=== PATIENT | male | born 1945 | race Caucasian/White ===

== ENCOUNTER 2018-09-09 10:35 | Inpatient (IN) | payer MEDICARE ==
--- NOTE | 2018-09-09 13:22 | CT ---
Head wo Cont CLINICAL HISTORY: Left arm weakness and numbness COMPARISON: None TECHNIQUE: Transverse scans were obtained from the base of the skull through the vertex without IV contrast on a multislice, multidetector CT scanner. Auto dosage reduction and iterative reconstruction techniques employed. FINDINGS: No focal abnormal parenchymal densities are identified. The ayala-white matter junctions are fairly well defined throughout.. There is no mass effect, hemorrhage, or extraaxial collection. The basal cisterns and sulci over the convexities are normal. The ventricles are normal for age. There is some increased density along the track of the right middle cerebral artery. This is of questionable significance but thrombus in the artery cannot be absolutely excluded. IMPRESSION: No parenchymal abnormalities are identified Increased density suggested in the right middle cerebral artery which can be seen with thrombosis. Noncontrast MR brain recommended. If there are are right the middle cerebral artery distribution parenchymal changes within the MRA or CTA is recommended
--- NOTE | 2018-09-09 14:48 | EDM.PDOC ---
ED HPI GENERAL MEDICAL PROBLEM - General Chief Complaint: Neuro Symptoms/Deficits Stated Complaint: LEFT SIDE NUMBNESS Time Seen by Provider: 09/09/18 10:50 Source of Information: Reports: Patient History Limitations: Reports: No Limitations - History of Present Illness INITIAL COMMENTS - FREE TEXT/NARRATIVE: pt arrived with numbness in the left arm. This has claribel persistent. He feels like it is slightly weaker. He feels like it is just a little difficult to coodinate. He does have slight numbness in the left leg. He does not have a headache. Onset: Today, Other ( started at around 10 am. ) Duration: Hour(s): Location: Reports: Upper Extremity, Left, Lower Extremity, Left Severity: Severe Associated Symptoms: Reports: Weakness, Other (pt has numbness in the left arm. ) - Related Data Allergies Allergy/AdvReac Type Severity Reaction Status Date / Time No Known Allergies Allergy Verified 09/09/18 10:52 Home Meds: Home Meds Albuterol Sulfate [Proair Hfa] 8.5 gm IH ASDIRECTED 08/23/15 [History] Doxazosin Mesylate 2 mg PO DAILY 08/23/15 [History] Lisinopril 1 tab PO DAILY 08/23/15 [History] Simvastatin [Zocor] 40 mg PO BEDTIME 08/23/15 [History] Aspirin [Adult Low Dose Aspirin EC] 81 mg PO DAILY 09/09/18 [History] Clopidogrel [Plavix] 75 mg PO DAILY tablet 09/10/18 [Rx] Past Medical History HEENT History: Reports: Cataract, Impaired Vision Cardiovascular History: Reports: High Cholesterol, Hypertension Respiratory History: Reports: Asthma Musculoskeletal History: Reports: Fracture Other Musculoskeletal History: finger Oncologic (Cancer) History: Reports: Squamous Cell Carcinoma - Infectious Disease History Infectious Disease History: Reports: Chicken Pox, Measles, Mumps - Past Surgical History Cardiovascular Surgical History: Reports: Coronary Artery Stent Dermatological Surgical History: Reports: Skin Biopsy Social & Family History - Tobacco Use Smoking Status *Q: Never Smoker - Caffeine Use Caffeine Use: Reports: None - Recreational Drug Use Recreational Drug Use: No ED ROS GENERAL - Review of Systems Review Of Systems: See Below Constitutional: Reports: No Symptoms HEENT: Reports: No Symptoms Respiratory: Reports: No Symptoms Cardiovascular: Reports: No Symptoms Endocrine: Reports: No Symptoms GI/Abdominal: Reports: No Symptoms : Reports: No Symptoms Musculoskeletal: Reports: Other (numbness in the left arm. ) Skin: Reports: No Symptoms ED EXAM, NEURO - Physical Exam Exam: See Below Text/Narrative:: pt arrived with numbness in the left arm. He felt like the whole arm was numb. he was able to grasp well but there might be slight weakness. he had the symptoms for 4-5 hours. Exam Limited By: No Limitations General Appearance: Alert, No Apparent Distress, Other (pupils are equal and reactive. ) Ears: Normal TMs Nose: Normal Inspection Throat/Mouth: Normal Inspection Head Exam: Atraumatic Neck: Normal Inspection Respiratory/Chest: No Respiratory Distress Cardiovascular: Other (pt is having frquent ventricular ectopics, ) GI/Abdominal: Soft, Non-Tender Rectal (Males) Exam: Deferred Neurological: Alert, Oriented x 3 Back Exam: Normal Inspection Extremities: Other (pt is having numbness in the left arm and slight weakness. ) Psychiatric: Normal Affect Course - Vital Signs Last Recorded V/S: Last Vital Signs Temp 36.9 C 09/10/18 16:15 Pulse 84 09/10/18 16:15 Resp 16 09/10/18 16:15 BP 112/64 09/10/18 16:15 Pulse Ox 97 09/10/18 16:15 - Orders/Labs/Meds Labs: Laboratory Tests 09/09/18 09/09/18 09/09/18 Range/Units 11:02 11:02 11:24 WBC 8.0 (4.5-11.0) K/uL RBC 5.35 (4.30-5.90) M/uL Hgb 15.6 H (12.0-15.0) g/dL Hct 48.1 (40.0-54.0) % MCV 90 (80-98) fL MCH 29 (27-31) pg MCHC 32 (32-36) % Plt Count 205 (150-400) K/uL Neut % (Auto) 71 H (36-66) % Lymph % (Auto) 16 L (24-44) % [place] % (Auto) 10 H (2-6) % Eos % (Auto) 2 (2-4) % Baso % (Auto) 0 (0-1) % Sodium 141 (140-148) mmol/L Potassium 4.2 (3.6-5.2) mmol/L Chloride 107 (100-108) mmol/L Carbon Dioxide 26 (21-32) mmol/L Anion Gap 8.1 (5.0-14.0) mmol/L BUN 27 H (7-18) mg/dL Creatinine 1.7 H (0.8-1.3) mg/dL Est Cr Clr Drug Dosing 49.28 mL/min Estimated GFR (MDRD) 40 L (>60) Glucose 112 H (74-106) mg/dL Calcium 8.7 (8.5-10.1) mg/dL Total Bilirubin 0.8 D (0.2-1.0) mg/dL AST 16 (15-37) U/L ALT 19 (12-78) U/L Alkaline Phosphatase 79 (46-116) U/L Total Protein 6.4 (6.4-8.2) g/dL Albumin 3.3 L (3.4-5.0) g/dL Globulin 3.1 (2.3-3.5) g/dL Albumin/Globulin Ratio 1.1 L (1.2-2.2) Urine Color Yellow Urine Appearance Clear Urine pH 6.0 (4.5-8.0) Ur Specific [place] 1.020 (1.008-1.030) Urine Protein Negative (NEGATIVE) mg/dL Urine Glucose (UA) Normal (NEGATIVE) mg/dL Urine Ketones Negative (NEGATIVE) mg/dL Urine Occult Blood Negative (NEGATIVE) Urine Nitrite Negative (NEGAITVE) Urine Bilirubin Negative (NEGATIVE) Urine Urobilinogen Normal (NORMAL) mg/dL Ur Leukocyte Esterase Negative (NEGATIVE) Urine RBC 0-5 (0-5) Urine WBC Not seen (0-5) Ur Epithelial Cells Not seen Amorphous Sediment Few Urine Bacteria Not seen Urine Mucus Not seen Meds: Medications Discontinued Medications Generic Name Dose Route Start Last Admin Trade Name Freq PRN Reason Stop Dose Admin Albuterol 0 gm 09/09/18 18:00 Ventolin Hfa INH Q4H PRN Shortness of Breath Aspirin 81 mg 09/10/18 09:00 09/10/18 09:17 Halfprin PO 81 mg DAILY MARKEL Administration Clopidogrel Bisulfate 75 mg 09/09/18 18:30 09/10/18 09:16 Plavix PO 75 mg DAILY MARKEL Administration Clopidogrel Bisulfate Confirm 09/09/18 20:57 09/09/18 21:27 Plavix Administered 09/09/18 20:58 Not Given Dose 75 mg .ROUTE .STK-MED ONE Doxazosin Mesylate 2 mg 09/10/18 09:00 09/10/18 09:20 Cardura PO 2 mg DAILY MARKEL Administration Sodium Chloride 100 mls @ 3 mls/sec 09/09/18 15:00 09/09/18 15:08 Normal Saline IV 3 mls/sec ASDIRECTED MARKEL Administration Sodium Chloride 1,000 mls @ 75 mls/hr 09/09/18 15:15 09/10/18 09:15 Normal Saline IV 75 mls/hr ASDIRECTED AMRKEL Administration Iopamidol 100 ml 09/09/18 15:00 09/09/18 15:15 Isovue-370 (76%) IV 100 ml . DIRECTED MARKEL Administration Lisinopril 40 mg 09/10/18 09:00 09/10/18 09:16 Prinivil PO 40 mg DAILY MARKEL Administration Simvastatin 40 mg 09/09/18 21:00 09/09/18 20:59 Zocor PO 40 mg BEDTIME MARKEL Administration Simvastatin Confirm 09/09/18 20:57 09/09/18 21:27 Zocor Administered 09/09/18 20:58 Not Given Dose 20 mg .ROUTE .STK-MED ONE Sodium Chloride 10 ml 09/09/18 14:58 09/09/18 15:08 Saline Flush FLUSH 10 ml ASDIRECTED PRN Administration Keep Vein Open - Re-Assessments/Exams Free Text/Narrative Re-Assessment/Exam: 09/09/18 16:37 pt had a cat scan of the head which showed some fullness in the middle cerebral artery-rt, A Mri of the head was done which looked the same with a possible very small rt luncar infarct, A CTA was done which shows good looking vessels. All of the images were sent to Dr Iglesias who felt he had a small lacunar infarct , cont asa and statin and obtain a echo and holter mopnitor on the pt. He felt a over nite observation would be good. 09/12/18 07:13 Departure - Departure Time of Disposition: 16:31 Disposition: Admitted As Inpatient 64 Condition: Fair Clinical Impression: Lacunar infarct, acute, Ventricular ectopic beats - Discharge Information
[2018-09-09] MEDS ORDERED: Sodium Chloride 0.9% 10 ML Syringe FLUSH PRN (14:58)
[2018-09-09] MEDS ORDERED: Sodium Chloride 0.9% 100 ML IV SCH (15:00)
[2018-09-09] MEDS ORDERED: Iopamidol 755 Mg/ML 100 ML Bottle IV SCH (15:00)
--- NOTE | 2018-09-09 15:38 | MR ---
Brain wo Cont CLINICAL HISTORY: Right upper extremity numbness COMPARISON: Noncontrast CT brain, current TECHNIQUE: Multiple axial, sagittal, and coronal images were obtained on a 1.5 T magnet with multiweighted sequences, FLAIR, and diffusion imaging without contrast. FINDINGS: There is no focal mass lesion. There is no hemmorhage or extraaxial collection. No restricted diffusion is identified.. There are scattered T2 hyperintensities in the subcortical and periventricular white matter bilaterally. The basal cisterns and sulci over the convexities are normal. The ventricles are normal for age. On the T1 image series there is a linear hyperintense focus in the region of the junction of the ICA right A1 segment and right M1 segment. This correlates to the area of increased linear density on the CT scan. IMPRESSION: Mild age-related atrophy. Scattered chronic ischemic microvascular changes Curvilinear focus of the increased T1 signal in the right suprasellar cistern near the junction of the right ICA, right A1 segment and M1 segment.. This correlates to some increased density on the current CT scan. Though unlikely, this could represent nonobstructing intraluminal thrombus. CTA recommended
--- NOTE | 2018-09-09 15:48 | CT ---
Ang Head CLINICAL HISTORY: Recent onset Left arm numbness. COMPARISON: Current MR and noncontrast CT TECHNIQUE: Multiple volume rendered and MIP 3D reconstructions were generated from source images obtained on a spiral scanner before and after intravenous iodinated contrast enhancement Auto dosage reduction and iterative reconstruction techniques employed. FINDINGS: Internal carotid arteries: Show some minimal atheromatous plaque without significant stenosis. The left ICA Smaller than the right. Anterior cerebral arteries: The left A1 segment is atretic. There is a prominent right the A2 segment which divides to feed both the frontal lobes. Middle cerebral arteries: Both middle cerebral arteries have a normal course and caliber. No filling defect is identified in the right the middle cerebral artery. Communicating arteries are patent the Posterior cerebral arteries: Have a normal course and caliber. Both posterior tibial Vertebral/basilar arteries: Normal course and caliber. The right the superior cerebellar artery is atretic or absent. IMPRESSION: There is no intraluminal filling defect in the right the internal carotid middle cerebral or anterior cerebral artery. There is some ICA plaque on the right. Atretic left A1 segment as anatomic variant Atretic or absent right superior cerebral artery
[2018-09-09] MEDS: Sodium Chloride 0.9% 1,000 ML IV SCH ×2 (15:55→21:57)
--- NOTE | 2018-09-09 17:56 | PCM.HP ---
H&P History of Present Illness - General Date of Service: 09/09/18 Admit Problem/Dx: Admission Diagnosis/Problem Admission Diagnosis/Problem CVA, Cerebrovascular accident Source of Information: Patient, EMS History Limitations: Reports: No Limitations - History of Present Illness Initial Comments - Free Text/Narative: Started having numbness in the left arm at 10 AM and a lesser degree the left leg. No speech problem. No vision change and drove to the ER without difficulty. He has never had a problem before. Is better now then this morning. Onset of Symptoms: Reports: Today, Sudden Duration of Symptoms: Reports: Hour(s): Location: Reports: Upper Extremity, Left, Lower Extremity, Left - Related Data Allergies/Adverse Reactions: Allergies Allergy/AdvReac Type Severity Reaction Status Date / Time No Known Allergies Allergy Verified 09/09/18 10:52 Home Medications: Home Meds Albuterol Sulfate [Proair Hfa] 8.5 gm IH ASDIRECTED 08/23/15 [History] Doxazosin Mesylate 2 mg PO DAILY 08/23/15 [History] Lisinopril 1 tab PO DAILY 08/23/15 [History] Simvastatin [Zocor] 40 mg PO BEDTIME 08/23/15 [History] Aspirin [Adult Low Dose Aspirin EC] 81 mg PO DAILY 09/09/18 [History] Past Medical History HEENT History: Reports: Cataract, Impaired Vision Cardiovascular History: Reports: High Cholesterol, Hypertension Respiratory History: Reports: Asthma Musculoskeletal History: Reports: Fracture Other Musculoskeletal History: finger Oncologic (Cancer) History: Reports: Squamous Cell Carcinoma - Infectious Disease History Infectious Disease History: Reports: Chicken Pox, Measles, Mumps - Past Surgical History Cardiovascular Surgical History: Reports: Coronary Artery Stent Dermatological Surgical History: Reports: Skin Biopsy Social & Family History - Tobacco Use Smoking Status *Q: Never Smoker - Caffeine Use Caffeine Use: Reports: None - Recreational Drug Use Recreational Drug Use: No H&P Review of Systems - Review of Systems: Review Of Systems: See Below General: Reports: No Symptoms HEENT: Reports: No Symptoms Pulmonary: Reports: No Symptoms Cardiovascular: Reports: No Symptoms Gastrointestinal: Reports: No Symptoms Genitourinary: Reports: No Symptoms Musculoskeletal: Reports: Other (left extrem. weakness) Skin: Reports: No Symptoms Psychiatric: Reports: No Symptoms Neurological: Reports: Numbness Exam - Exam Exam: See Below - Vital Signs Vital Signs: Last Vital Signs Temp 97.3 F 09/09/18 10:47 Pulse 93 09/09/18 17:30 Resp 18 09/09/18 17:30 BP 145/74 H 09/09/18 17:30 Pulse Ox 96 09/09/18 17:30 Weight: 277 lb 1.937 oz - Exam General: Alert, Oriented, 4 HEENT: PERRLA, Hearing Intact, Mucosa Moist & [place], Nares Patent, Normal Nasal Septum, Posterior Pharynx Clear, Conjunctiva Clear, EOMI, EACs Clear, TMs Clear Neck: Supple, Trachea Midline, 2 Lungs: Clear to Auscultation, Normal Respiratory Effort Cardiovascular: Regular Rate GI/Abdominal Exam: Normal Bowel Sounds, Soft, Non-Tender, No Organomegaly, No Distention, No Abnormal Bruit, No Mass, Pelvis Stable Peripheral Pulses: 1+: Carotid (L), Carotid (R), Radial (L), Radial (R) Skin: Warm, Dry, Intact Neurological: Cranial Nerves Intact, Reflexes Equal Bilateral Neuro Extensive - Mental Status: Alert, Oriented x3, Normal Mood/Affect, Normal Cognition Neuro Extensive - Motor, Sensory, Reflexes: CN II-XII Intact, Normal Gait, Normal Reflexes DTR: 1+: Bicep (L), 2+: Bicep (R), Patella (L), Patella (R), Achilles (L), Achilles (R) Psychiatric: Alert, Normal Affect, Normal Mood - Patient Data Lab Results Last 24 hrs: Laboratory Results - last 24 hr 09/09/18 09/09/18 09/09/18 Range/Units 11:02 11:02 11:24 WBC 8.0 (4.5-11.0) K/uL RBC 5.35 (4.30-5.90) M/uL Hgb 15.6 H (12.0-15.0) g/dL Hct 48.1 (40.0-54.0) % MCV 90 (80-98) fL MCH 29 (27-31) pg MCHC 32 (32-36) % Plt Count 205 (150-400) K/uL Neut % (Auto) 71 H (36-66) % Lymph % (Auto) 16 L (24-44) % [place] % (Auto) 10 H (2-6) % Eos % (Auto) 2 (2-4) % Baso % (Auto) 0 (0-1) % Sodium 141 (140-148) mmol/L Potassium 4.2 (3.6-5.2) mmol/L Chloride 107 (100-108) mmol/L Carbon Dioxide 26 (21-32) mmol/L Anion Gap 8.1 (5.0-14.0) mmol/L BUN 27 H (7-18) mg/dL Creatinine 1.7 H (0.8-1.3) mg/dL Est Cr Clr Drug Dosing 49.28 mL/min Estimated GFR (MDRD) 40 L (>60) Glucose 112 H (74-106) mg/dL Calcium 8.7 (8.5-10.1) mg/dL Total Bilirubin 0.8 D (0.2-1.0) mg/dL AST 16 (15-37) U/L ALT 19 (12-78) U/L Alkaline Phosphatase 79 (46-116) U/L Total Protein 6.4 (6.4-8.2) g/dL Albumin 3.3 L (3.4-5.0) g/dL Globulin 3.1 (2.3-3.5) g/dL Albumin/Globulin Ratio 1.1 L (1.2-2.2) Urine Color Yellow Urine Appearance Clear Urine pH 6.0 (4.5-8.0) Ur Specific [place] 1.020 (1.008-1.030) Urine Protein Negative (NEGATIVE) mg/dL Urine Glucose (UA) Normal (NEGATIVE) mg/dL Urine Ketones Negative (NEGATIVE) mg/dL Urine Occult Blood Negative (NEGATIVE) Urine Nitrite Negative (NEGAITVE) Urine Bilirubin Negative (NEGATIVE) Urine Urobilinogen Normal (NORMAL) mg/dL Ur Leukocyte Esterase Negative (NEGATIVE) Urine RBC 0-5 (0-5) Urine WBC Not seen (0-5) Ur Epithelial Cells Not seen Amorphous Sediment Few Urine Bacteria Not seen Urine Mucus Not seen Result Diagrams: 09/09/18 11:02 09/09/18 11:02 Problem List Initiated/Reviewed/Updated: Yes Orders Last 24hrs: Active Orders 24 hr Category Date Time Status Patient Status [ADT] Routine ADT 09/09/18 17:39 Ordered Ambulate [RC] QID Care 09/09/18 17:39 Ordered EKG Documentation Completion [RC] ASDIRECTED Care 09/09/18 10:59 Active Height and Weight [RC] UPON Care 09/09/18 17:39 Ordered Intake and Output [RC] QSHIFT Care 09/09/18 17:41 Ordered Oxygen Therapy [RC] PRN Care 09/09/18 17:39 Ordered Up ad Nini [RC] ASDIRECTED Care 09/09/18 17:39 Ordered Up to Chair [RC] QID Care 09/09/18 17:39 Ordered VTE/DVT Education [RC] Per Unit Routine Care 09/09/18 17:39 Ordered Vital Signs [RC] Q4H Care 09/09/18 17:39 Ordered Regular Diet [DIET] Diet 09/10/18 Breakfast Ordered Albuterol [Ventolin HFA] Med 09/09/18 18:00 Ordered 8.5 gm INH ASDIRECTED Aspirin [Halfprin] Med 09/10/18 09:00 Ordered 81 mg PO DAILY Doxazosin Mesylate [Doxazosin Mesylate] Med 09/10/18 09:00 Ordered 2 mg PO DAILY Iopamidol [Isovue-370 (76%)] Med 09/09/18 15:00 Active 100 ml IV . DIRECTED Lisinopril [Lisinopril] Med 09/10/18 09:00 Ordered 1 tab PO DAILY Simvastatin [Zocor] Med 09/09/18 21:00 Ordered 40 mg PO BEDTIME Sodium Chloride 0.9% [Normal Saline] 1,000 ml Med 09/09/18 15:15 Active IV ASDIRECTED Sodium Chloride 0.9% [Normal Saline] 100 ml Med 09/09/18 15:00 Active IV ASDIRECTED Sodium Chloride 0.9% [Saline Flush] Med 09/09/18 14:58 Active 10 ml FLUSH ASDIRECTED PRN Resuscitation Status Routine Resus Stat 09/09/18 17:39 Ordered EKG 12 Lead [EK] Routine Ther 09/09/18 10:59 Ordered Medication Orders Sodium Chloride (Normal Saline) 100 mls @ 3 mls/sec IV ASDIRECTED MARKEL Last Admin: 09/09/18 15:08 Dose: 3 mls/sec Sodium Chloride (Normal Saline) 1,000 mls @ 75 mls/hr IV ASDIRECTED MARKEL Last Admin: 09/09/18 15:55 Dose: 500 mls/hr Iopamidol (Isovue-370 (76%)) 100 ml IV . DIRECTED MARKEL Last Admin: 09/09/18 15:15 Dose: 100 ml Sodium Chloride (Saline Flush) 10 ml FLUSH ASDIRECTED PRN PRN Reason: Keep Vein Open Last Admin: 09/09/18 15:08 Dose: 10 ml Assessment/Plan Comment:: Assessment/Plan: #1. CVA MRI shows Mild age-related atrophy. Scattered chronic ischemic microvascular changes.CTA Shows no intraluminal filling defect in the right the internal carotid middle cerebral or anterior cerebral artery. There is some ICA plaque on the right. Dr. Oliva neurologist want to have him observed here and get a echocardiogram in the morning. The films are consistent as having a Rt. Frontal Lacunar infarct. Will start of anti-platelet therapy. #2. Stage III Chronic renal failure. 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 HTN: Stable #4. History of Gout #5. History of Asthma: Stable.
[2018-09-09] MEDS ORDERED: Albuterol 8 GM Inhaler INH PRN (18:00)
[2018-09-09] MEDS ORDERED: Clopidogrel 75 MG Tab ONE (20:57)
[2018-09-09] MEDS ORDERED: Simvastatin 20 MG Tab ONE (20:57)
[2018-09-09] MEDS: Clopidogrel 75 MG Tab PO SCH (20:59)
[2018-09-09] MEDS ORDERED: Simvastatin 20 MG Tab PO SCH (21:00)
[2018-09-10] MEDS ORDERED: Aspirin 81 MG Tab.EC PO SCH (09:00)
[2018-09-10] MEDS ORDERED: Lisinopril 20 MG Tab PO SCH (09:00)
[2018-09-10] MEDS ORDERED: Doxazosin 4 MG Tab PO SCH (09:00)
[2018-09-10] MEDS: Sodium Chloride 0.9% 1,000 ML IV SCH (09:15)
[2018-09-10] MEDS: Clopidogrel 75 MG Tab PO SCH (09:16)
[2018-09-10 17:07] VITALS: BP 112/64
--- NOTE | 2018-09-10 17:36 | PCM.PN ---
- General Info Date of Service: 09/10/18 Functional Status: Reports: Pain Controlled - Review of Systems General: Reports: No Symptoms HEENT: Reports: No Symptoms Pulmonary: Reports: No Symptoms Cardiovascular: Reports: No Symptoms Gastrointestinal: Reports: No Symptoms Genitourinary: Reports: No Symptoms Musculoskeletal: Reports: No Symptoms Skin: Reports: No Symptoms Neurological: Reports: No Symptoms Psychiatric: Reports: No Symptoms - Patient Data Vitals - Most Recent: Last Vital Signs Temp 98.5 F 09/10/18 16:15 Pulse 84 09/10/18 16:15 Resp 16 09/10/18 16:15 BP 112/64 09/10/18 16:15 Pulse Ox 97 09/10/18 16:15 Weight - Most Recent: 277 lb 1.937 oz I&O - Last 24 Hours: Intake & Output 09/10/18 09/10/18 09/10/18 06:59 14:59 22:59 Intake Total 701 1040 Output Total 1400 400 Balance -699 640 Med Orders - Current: Current Medications Albuterol (Ventolin Hfa) 0 gm INH Q4H PRN PRN Reason: Shortness of Breath Aspirin (Halfprin) 81 mg PO DAILY [facility] Last Admin: 09/10/18 09:17 Dose: 81 mg Clopidogrel Bisulfate (Plavix) 75 mg PO DAILY [facility] Last Admin: 09/10/18 09:16 Dose: 75 mg Doxazosin Mesylate (Cardura) 2 mg PO DAILY [facility] Last Admin: 09/10/18 09:20 Dose: 2 mg Sodium Chloride (Normal Saline) 1,000 mls @ 75 mls/hr IV ASDIRECTED [facility] Last Admin: 09/10/18 09:15 Dose: 75 mls/hr Lisinopril (Prinivil) 40 mg PO DAILY [facility] Last Admin: 09/10/18 09:16 Dose: 40 mg Simvastatin (Zocor) 40 mg PO BEDTIME [facility] Last Admin: 09/09/18 20:59 Dose: 40 mg Discontinued Medications Clopidogrel Bisulfate (Plavix) Confirm Administered Dose 75 mg .ROUTE .STK-MED ONE Stop: 09/09/18 20:58 Last Admin: 09/09/18 21:27 Dose: Not Given Sodium Chloride (Normal Saline) 100 mls @ 3 mls/sec IV ASDIRECTED [facility] Last Admin: 09/09/18 15:08 Dose: 3 mls/sec Iopamidol (Isovue-370 (76%)) 100 ml IV . DIRECTED [facility] Last Admin: 09/09/18 15:15 Dose: 100 ml Simvastatin (Zocor) Confirm Administered Dose 20 mg .ROUTE .STK-MED ONE Stop: 09/09/18 20:58 Last Admin: 09/09/18 21:27 Dose: Not Given Sodium Chloride (Saline Flush) 10 ml FLUSH ASDIRECTED PRN PRN Reason: Keep Vein Open Last Admin: 09/09/18 15:08 Dose: 10 ml - Exam General: Alert, Oriented HEENT: Pupils Equal, Pupils Reactive, EOMI, Mucous Membr. Moist/[place] Neck: Supple Lungs: Clear to Auscultation, Normal Respiratory Effort Cardiovascular: Regular Rate, Regular Rhythm GI/Abdominal Exam: Normal Bowel Sounds, Soft, Non-Tender, No Organomegaly, No Distention, No Abnormal Bruit, No Mass, Pelvis Stable Back Exam: Normal Inspection, Full Range of Motion Extremities: Normal Inspection, Normal Range of Motion, Non-Tender, No Pedal Edema, Normal Capillary Refill Peripheral Pulses: 1+: Carotid (L), Carotid (R), Radial (L), Radial (R) Skin: Warm, Dry, Intact - Problem List Review Problem List Initiated/Reviewed/Updated: Yes - My Orders Last 24 Hours: My Active Orders 09/09/18 17:39 Patient Status [ADT] Routine Ambulate [RC] QID Height and Weight [RC] UPON Oxygen Therapy [RC] PRN Up ad Nini [RC] ASDIRECTED Up to Chair [RC] QID VTE/DVT Education [RC] Per Unit Routine Vital Signs [RC] Q4H Resuscitation Status Routine 09/09/18 17:41 Intake and Output [RC] QSHIFT 09/09/18 18:00 Albuterol [Ventolin HFA] 0 gm INH Q4H PRN 09/09/18 18:30 Clopidogrel [Plavix] 75 mg PO DAILY 09/09/18 19:27 PT Evaluation and Treatment [CONS] Routine 09/09/18 21:00 Simvastatin [Zocor] 40 mg PO BEDTIME 09/10/18 07:00 Echo Comp wo Cont [US] Routine 09/10/18 09:00 Aspirin [Halfprin] 81 mg PO DAILY Doxazosin [Cardura] 2 mg PO DAILY Lisinopril [Prinivil] 40 mg PO DAILY 09/10/18 17:27 Ready for Discharge [RC] PER UNIT ROUTINE 09/10/18 Breakfast Regular Diet [DIET] - Plan Plan:: Assessment/Plan: #1. CVA MRI shows Mild age-related atrophy. Scattered chronic ischemic microvascular changes.CTA Shows no intraluminal filling defect in the right the internal carotid middle cerebral or anterior cerebral artery. There is some ICA plaque on the right. Dr. Oliva neurologist want to have him observed here and get a echocardiogram in the morning. The films are consistent as having a Rt. Frontal Lacunar infarct. Will cointinue with anti-platelet therapy. Echocardiogram showed decrease EF 45-50%. TERRANCE was advised. This will be ordered as an outpatient. Will also get Car. artery studies and Holtor later after the TERRANCE. #2. Stage III Chronic renal failure. 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 HTN: Stable #4. History of Gout #5. History of Asthma: Stable.
--- NOTE | 2018-09-10 17:41 | PCM.DCSUM1 ---
Discharge Summary - Hospital Course Brief History: Admitted after having numbness and weakness in the left arm and leg. Diagnosis: Stroke: No Modified Tyrone Scale: No Symptoms at All Modified Tyrone Scale Score: 0 - Discharge Data Discharge Date: 09/10/18 Discharge Disposition: Home, Self-Care 01 Condition: Stable - Patient Summary/Data Consults: Consultations 09/09/18 19:27 PT Evaluation and Treatment [CONS] Routine Please Evaluate and Treat. PT Reason for Consult: Strengthening Pending Discharge: Yes Discharge Disposition: Home Special Instructions: pt ot eval r/t stroke This query below is only for informational purposes and is not editable. Admission Diagnosis/Problem: CVA, Cerebrovascular accident Hospital Course: Symptoms cleared after 18 hrs so dx is TIA. He had a echocardiogram which showed EF 45-50%. TERRANCE was suggested. Will be going home today. - Patient Instructions Diet: Heart Healthy Diet Activity: As Tolerated - Discharge Plan *PRESCRIPTION DRUG MONITORING PROGRAM REVIEWED*: No *COPY OF PRESCRIPTION DRUG MONITORING REPORT IN PATIENT NONA: No Home Medications: Home Meds Albuterol Sulfate [Proair Hfa] 8.5 gm IH ASDIRECTED 08/23/15 [History] Doxazosin Mesylate 2 mg PO DAILY 08/23/15 [History] Lisinopril 1 tab PO DAILY 08/23/15 [History] Simvastatin [Zocor] 40 mg PO BEDTIME 08/23/15 [History] Aspirin [Adult Low Dose Aspirin EC] 81 mg PO DAILY 09/09/18 [History] Clopidogrel [Plavix] 75 mg PO DAILY tablet 09/10/18 [Rx] Forms: ED Department Discharge Referrals: Carlos Graves Sr, MD [Primary Care Provider] - - Discharge Summary/Plan Comment DC Time >30 min.: No Discharge Summary/Plan Comment: Assessment/Plan: #1. CVA MRI shows Mild age-related atrophy. Scattered chronic ischemic microvascular changes.CTA Shows no intraluminal filling defect in the right the internal carotid middle cerebral or anterior cerebral artery. There is some ICA plaque on the right. Dr. Oliva neurologist want to have him observed here and get a echocardiogram in the morning. The films are consistent as having a Rt. Frontal Lacunar infarct. Will cointinue with anti-platelet therapy. Echocardiogram showed decrease EF 45-50%. TERRANCE was advised. This will be ordered as an outpatient. Will also get Car. artery studies and Holtor later after the TERRANCE. #2. Stage III Chronic renal failure. 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 HTN: Stable #4. History of Gout #5. History of Asthma: Stable. - General Info Date of Service: 09/10/18 Functional Status: Reports: Pain Controlled - Review of Systems General: Reports: No Symptoms HEENT: Reports: No Symptoms Pulmonary: Reports: No Symptoms Cardiovascular: Reports: No Symptoms Gastrointestinal: Reports: No Symptoms Genitourinary: Reports: No Symptoms Musculoskeletal: Reports: No Symptoms Skin: Reports: No Symptoms Neurological: Reports: No Symptoms Psychiatric: Reports: No Symptoms - Patient Data Vitals - Most Recent: Last Vital Signs Temp 98.5 F 09/10/18 16:15 Pulse 84 09/10/18 16:15 Resp 16 09/10/18 16:15 BP 112/64 09/10/18 16:15 Pulse Ox 97 09/10/18 16:15 Weight - Most Recent: 277 lb 1.937 oz I&O - Last 24 hours: Intake & Output 09/10/18 09/10/18 09/10/18 06:59 14:59 22:59 Intake Total 701 1040 Output Total 1400 400 Balance -699 640 Med Orders - Current: Current Medications Albuterol (Ventolin Hfa) 0 gm INH Q4H PRN PRN Reason: Shortness of Breath Aspirin (Halfprin) 81 mg PO DAILY [facility] Last Admin: 09/10/18 09:17 Dose: 81 mg Clopidogrel Bisulfate (Plavix) 75 mg PO DAILY [facility] Last Admin: 09/10/18 09:16 Dose: 75 mg Doxazosin Mesylate (Cardura) 2 mg PO DAILY [facility] Last Admin: 09/10/18 09:20 Dose: 2 mg Sodium Chloride (Normal Saline) 1,000 mls @ 75 mls/hr IV ASDIRECTED [facility] Last Admin: 09/10/18 09:15 Dose: 75 mls/hr Lisinopril (Prinivil) 40 mg PO DAILY [facility] Last Admin: 09/10/18 09:16 Dose: 40 mg Simvastatin (Zocor) 40 mg PO BEDTIME [facility] Last Admin: 09/09/18 20:59 Dose: 40 mg Discontinued Medications Clopidogrel Bisulfate (Plavix) Confirm Administered Dose 75 mg .ROUTE .STK-MED ONE Stop: 09/09/18 20:58 Last Admin: 09/09/18 21:27 Dose: Not Given Sodium Chloride (Normal Saline) 100 mls @ 3 mls/sec IV ASDIRECTED [facility] Last Admin: 09/09/18 15:08 Dose: 3 mls/sec Iopamidol (Isovue-370 (76%)) 100 ml IV . DIRECTED [facility] Last Admin: 09/09/18 15:15 Dose: 100 ml Simvastatin (Zocor) Confirm Administered Dose 20 mg .ROUTE .STK-MED ONE Stop: 09/09/18 20:58 Last Admin: 09/09/18 21:27 Dose: Not Given Sodium Chloride (Saline Flush) 10 ml FLUSH ASDIRECTED PRN PRN Reason: Keep Vein Open Last Admin: 09/09/18 15:08 Dose: 10 ml - Exam General: Reports: Alert, Oriented HEENT: Reports: Pupils Equal, Pupils Reactive, EOMI, Mucous Membr. Moist/[place] Neck: Reports: Supple Lungs: Reports: Clear to Auscultation, Normal Respiratory Effort Cardiovascular: Reports: Regular Rate, Regular Rhythm GI/Abdominal Exam: Normal Bowel Sounds, Soft, Non-Tender, No Organomegaly, No Distention, No Abnormal Bruit, No Mass, Pelvis Stable Extremities: Normal Inspection, Normal Range of Motion, Non-Tender, No Pedal Edema, Normal Capillary Refill Neurological: Reports: No New Focal Deficit Psy/Mental Status: Reports: Alert, Normal Affect, Normal Mood
== END 2018-09-10 18:01 | disposition home or self-care (01) | DRG 69 ==
LOC: JP.ED 10:35 → JP.MS 17:39
PROVIDERS: ADMIT Internal Medicine; ATTEND Internal Medicine
DX: I63.81 Other cerebral infarction due to occlusion or stenosis of small artery (principal); G81.94 Hemiplegia, unspecified affecting left nondominant side; R20.0 Anesthesia of skin; G45.9 Transient cerebral ischemic attack, unspecified; H54.7 Unspecified visual loss; I10 Essential (primary) hypertension; E78.00 Pure hypercholesterolemia, unspecified; I12.9 Hypertensive chronic kidney disease with stage 1 through stage 4 chronic kidney disease, or unspecified chronic kidney disease; N18.3 Chronic kidney disease, stage 3 (moderate); I25.10 Atherosclerotic heart disease of native coronary artery without angina pectoris; R53.1 Weakness; J45.909 Unspecified asthma, uncomplicated; M10.9 Gout, unspecified; Z85.828 Personal history of other malignant neoplasm of skin; Z95.5 Presence of coronary angioplasty implant and graft; Z79.899 Other long term (current) drug therapy; Z79.82 Long term (current) use of aspirin
CPT/HCPCS: 36415; 70450 ×2; 70496 ×2; 70551 ×2; 80053; 81001; 85025; 93005; J7030 ×2; Q9967; 93306; 96360; 96361; 97162-GP; 97530-GP; 97535-GP; 99285-25; A9270-GY

== ENCOUNTER 2020-02-06 06:11 | Emergency (ER) | payer MEDICARE ==
[2020-02-06] MEDS ORDERED: Sodium Chloride 0.9% 10 ML Syringe FLUSH PRN (06:22)
[2020-02-06] MEDS ORDERED: Acetaminophen 325 MG Tab PO PRN (06:22)
[2020-02-06 06:40] VITALS: BP 119/66; PULSE 110
--- NOTE | 2020-02-06 06:51 | EDM.PDOC ---
<Guanaco Mcnulty - Last Filed: 02/06/20 06:45> ED HPI GENERAL MEDICAL PROBLEM - General Chief Complaint: Respiratory Problem Stated Complaint: SOB,CHILLS Time Seen by Provider: 02/06/20 06:45 Source of Information: Reports: Patient History Limitations: Reports: No Limitations - History of Present Illness INITIAL COMMENTS - FREE TEXT/NARRATIVE: Robert is a 74-year-old male with a history of asthma who presents to the ED for evaluation of increased shortness of breath with activity and a cough producing yellow sputum. Patient was seen at his primary care provider's office 4 days ago where he underwent testing for COVID-19 as well as initiation of antibiotics for probable bronchitis with azithromycin. He is on day 4 of the azithromycin at this time but reports that his cough is gone from clear sputum to bright yellow to orange sputum today. He is running a low-grade fever at 100 F. He has felt a little bit more weak. He does state that he has a headache and body aches as well. He denies any loss of taste or smell. He has been using his albuterol inhaler for his asthma. Robert is quite anxious to get the results of his Covid test which will not be back before Sunday. We did explain to him that if we tested him here today it likely will not return before Sunday or Sunday. Onset: Gradual Duration: Getting Worse Associated Symptoms: Reports: Cough, Fever/Chills, Headaches, Shortness of Breath Treatments [employer]: Reports: Other Medication(s) (Azithromycin) denies pain Pain Score (Numeric/FACES): 0 - Related Data Allergies Allergy/AdvReac Type Severity Reaction Status Date / Time No Known Allergies Allergy Verified 02/06/20 06:59 Home Meds: Home Meds Albuterol Sulfate [Proair Hfa] 8.5 gm IH ASDIRECTED 08/23/15 [History] Doxazosin Mesylate 4 mg PO DAILY 08/23/15 [History] Simvastatin [Zocor] 40 mg PO BEDTIME 08/23/15 [History] Clopidogrel [Plavix] 75 mg PO DAILY tablet 09/10/18 [Rx] Azithromycin [Zithromax] 250 mg PO ASDIRECTED 02/06/20 [History] Metoprolol Tartrate [Lopressor] 25 mg PO BID 02/06/20 [History] Past Medical History HEENT History: Reports: Cataract, Impaired Vision Cardiovascular History: Reports: High Cholesterol, Hypertension Respiratory History: Reports: Asthma Musculoskeletal History: Reports: Fracture Other Musculoskeletal History: finger Oncologic (Cancer) History: Reports: Squamous Cell Carcinoma - Infectious Disease History Infectious Disease History: Reports: Chicken Pox, Measles, Mumps - Past Surgical History Cardiovascular Surgical History: Reports: Coronary Artery Stent Dermatological Surgical History: Reports: Skin Biopsy Social & Family History - Caffeine Use Caffeine Use: Reports: None ED ROS GENERAL - Review of Systems Review Of Systems: See Below Constitutional: Reports: Fever, Chills, Malaise HEENT: Reports: No Symptoms Respiratory: Reports: Shortness of Breath, Cough, Sputum (Clear turning to yellow sputum) Cardiovascular: Reports: Dyspnea on Exertion Endocrine: Reports: No Symptoms GI/Abdominal: Reports: No Symptoms Musculoskeletal: Reports: No Symptoms Skin: Reports: No Symptoms Neurological: Reports: No Symptoms Psychiatric: Reports: No Symptoms Hematologic/Lymphatic: Reports: No Symptoms Immunologic: Reports: No Symptoms ED EXAM, GENERAL - Physical Exam Exam: See Below Exam Limited By: No Limitations General Appearance: Alert, WD/WN, No Apparent Distress Eye Exam: Bilateral Eye: EOMI, PERRL Nose: Normal Inspection, Normal Mucosa, No Blood Throat/Mouth: Normal Inspection, Normal Lips, Normal Teeth, Normal Gums, Normal Oropharynx, Normal Voice, No Airway Compromise Head: Atraumatic, Normocephalic Neck: Normal Inspection, Supple, Non-Tender, Full Range of Motion. No: Lymphadenopathy (R), Lymphadenopathy (L) Respiratory/Chest: No Respiratory Distress, Lungs Clear, Normal Breath Sounds, No Accessory Muscle Use, Chest Non-Tender Cardiovascular: Normal Peripheral Pulses, No Edema, No Gallop, No JVD, No Murmur, Tachycardia Peripheral Pulses: 2+: Radial (L), Radial (R) GI/Abdominal: Normal Bowel Sounds, Soft, Non-Tender, No Organomegaly, No Distention, No Abnormal Bruit, No Mass Back Exam: Normal Inspection, Full Range of Motion, NT Extremities: Normal Inspection, Normal Range of Motion, Non-Tender, Normal Capillary Refill, No Pedal Edema Neurological: Alert, Oriented, No Motor/Sensory Deficits Psychiatric: Normal Affect, Normal Mood Skin Exam: Warm, Dry, Intact, Normal Color, No Rash Lymphatic: No Adenopathy Departure - Departure Disposition: Home, Self-Care 01 Clinical Impression: Bronchitis - Discharge Information Instructions: Acute Bronchitis, Adult, [id number] Referrals: Carlos Graves Sr, MD [Primary Care Provider] - Forms: ED Department Discharge Care Plan Goals: Take prednisone as prescribed with your full daily dose each day with your first meal. Finish antibiotic as prescribed and increase activity as tolerated. Recheck at any time if you feel you are worsening despite treatment, especially increased difficulty breathing. Sepsis Event Note (ED) - Evaluation Sepsis Screening Result: Possible Sepsis Risk <Caesar Lawrence - Last Filed: 02/06/20 09:51> Course - Vital Signs Last Recorded V/S: Last Vital Signs Temp 100.1 F 02/06/20 06:58 Pulse 110 H 02/06/20 06:40 Resp 14 02/06/20 06:40 BP 119/66 02/06/20 06:40 Pulse Ox 92 L 02/06/20 06:40 - Orders/Labs/Meds Orders: Active Orders 24 hr Category Date Time Status Chest 1V Frontal [CR] Stat Exams 02/06/20 06:24 Taken Isolation [COMM] Stat Oth 02/06/20 06:22 Ordered Peripheral IV Insertion Adult [OM.PC] Routine Oth 02/06/20 06:22 Ordered Labs: Laboratory Tests 02/06/20 02/06/20 02/06/20 Range/Units 06:40 06:45 06:45 WBC 7.2 (4.5-11.0) K/uL RBC 4.78 (4.30-5.90) M/uL Hgb 14.0 (12.0-15.0) g/dL Hct 42.6 (40.0-54.0) % MCV 89 (80-98) fL MCH 29 (27-31) pg MCHC 33 (32-36) % Plt Count 209 (150-400) K/uL Neut % (Auto) 86 H (36-66) % Lymph % (Auto) 7 L (24-44) % Florence % (Auto) 8 H (2-6) % Eos % (Auto) 0 L (2-4) % Baso % (Auto) 0 (0-1) % PT (9.5-12.0) sec INR (0.80-1.20) D-Dimer, Quantitative (0.0-400.0) ng/mL Puncture Site Rt radial ABG pH 7.453 H (7.350-7.450) ABG pCO2 26.5 L (35.0-42.0) mmHg ABG pO2 71.5 L (75.0-100.0) mmHg ABG HCO3 18.3 L (22.0-26.0) mmol/L ABG Total CO2 15.8 L (23.0-27.0) mmol/L ABG O2 Saturation 95.6 (95.0-98.0) % ABG O2 Content 18.9 (15.0-23.0) %vol ABG Base Excess -3.8 mm/L ABG Hemoglobin 14.3 (13.5-18.0) g/dL ABG Oxyhemoglobin 93.5 % ABG Carboxyhemoglobin 1.2 (0.0-1.6) % ABG Methemoglobin 1.0 % Syed Test Pass O2 Delivery Device Room air Sodium (140-148) mmol/L Potassium (3.6-5.2) mmol/L Chloride (100-108) mmol/L Carbon Dioxide (21-32) mmol/L Anion Gap (5.0-14.0) mmol/L BUN (7-18) mg/dL Creatinine (0.8-1.3) mg/dL Est Cr Clr Drug Dosing mL/min Estimated GFR (MDRD) (>60) Glucose (74-106) mg/dL Lactic Acid (0.4-2.0) mmol/L Calcium (8.5-10.1) mg/dL Ferritin 500 H (8-388) ng/ml Total Bilirubin (0.2-1.0) mg/dL Direct Bilirubin (0.0-0.2) mg/dL Indirect Bilirubin AST (15-37) U/L ALT (12-78) U/L Alkaline Phosphatase (46-116) U/L Lactate Dehydrogenase (85-227) U/L C-Reactive Protein (0.0-0.3) mg/dL Total Protein (6.4-8.2) g/dL Albumin (3.4-5.0) g/dL Globulin (2.3-3.5) g/dL Albumin/Globulin Ratio (1.2-2.2) Procalcitonin ng/mL 1002/06/20 02/06/20 Range/Units 06:45 06:45 06:45 WBC (4.5-11.0) K/uL RBC (4.30-5.90) M/uL Hgb (12.0-15.0) g/dL Hct (40.0-54.0) % MCV (80-98) fL MCH (27-31) pg MCHC (32-36) % Plt Count (150-400) K/uL Neut % (Auto) (36-66) % Lymph % (Auto) (24-44) % Florence % (Auto) (2-6) % Eos % (Auto) (2-4) % Baso % (Auto) (0-1) % PT (9.5-12.0) sec INR (0.80-1.20) D-Dimer, Quantitative 389 (0.0-400.0) ng/mL Puncture Site ABG pH (7.350-7.450) ABG pCO2 (35.0-42.0) mmHg ABG pO2 (75.0-100.0) mmHg ABG HCO3 (22.0-26.0) mmol/L ABG Total CO2 (23.0-27.0) mmol/L ABG O2 Saturation (95.0-98.0) % ABG O2 Content (15.0-23.0) %vol ABG Base Excess mm/L ABG Hemoglobin (13.5-18.0) g/dL ABG Oxyhemoglobin % ABG Carboxyhemoglobin (0.0-1.6) % ABG Methemoglobin % Syed Test O2 Delivery Device Sodium 133 L (140-148) mmol/L Potassium 4.0 (3.6-5.2) mmol/L Chloride 102 (100-108) mmol/L Carbon Dioxide 19 L (21-32) mmol/L Anion Gap 16.0 H (5.0-14.0) mmol/L BUN 31 H (7-18) mg/dL Creatinine 1.7 H (0.8-1.3) mg/dL Est Cr Clr Drug Dosing 48.99 mL/min Estimated GFR (MDRD) 39 L (>60) Glucose 116 H (74-106) mg/dL Lactic Acid 0.8 (0.4-2.0) mmol/L Calcium 8.1 L (8.5-10.1) mg/dL Ferritin (8-388) ng/ml Total Bilirubin 0.9 (0.2-1.0) mg/dL Direct Bilirubin 0.33 H (0.0-0.2) mg/dL Indirect Bilirubin 0.57 AST 30 D (15-37) U/L ALT 32 (12-78) U/L Alkaline Phosphatase 66 (46-116) U/L Lactate Dehydrogenase 199 (85-227) U/L C-Reactive Protein 8.23 H (0.0-0.3) mg/dL Total Protein 6.5 (6.4-8.2) g/dL Albumin 3.0 L (3.4-5.0) g/dL Globulin 3.5 (2.3-3.5) g/dL Albumin/Globulin Ratio 0.9 L (1.2-2.2) Procalcitonin ng/mL 02/06/20 02/06/20 Range/Units 06:45 06:45 WBC (4.5-11.0) K/uL RBC (4.30-5.90) M/uL Hgb (12.0-15.0) g/dL Hct (40.0-54.0) % MCV (80-98) fL MCH (27-31) pg MCHC (32-36) % Plt Count (150-400) K/uL Neut % (Auto) (36-66) % Lymph % (Auto) (24-44) % Florence % (Auto) (2-6) % Eos % (Auto) (2-4) % Baso % (Auto) (0-1) % PT 10.7 (9.5-12.0) sec INR 0.98 (0.80-1.20) D-Dimer, Quantitative (0.0-400.0) ng/mL Puncture Site ABG pH (7.350-7.450) ABG pCO2 (35.0-42.0) mmHg ABG pO2 (75.0-100.0) mmHg ABG HCO3 (22.0-26.0) mmol/L ABG Total CO2 (23.0-27.0) mmol/L ABG O2 Saturation (95.0-98.0) % ABG O2 Content (15.0-23.0) %vol ABG Base Excess mm/L ABG Hemoglobin (13.5-18.0) g/dL ABG Oxyhemoglobin % ABG Carboxyhemoglobin (0.0-1.6) % ABG Methemoglobin % Syed Test O2 Delivery Device Sodium (140-148) mmol/L Potassium (3.6-5.2) mmol/L Chloride (100-108) mmol/L Carbon Dioxide (21-32) mmol/L Anion Gap (5.0-14.0) mmol/L BUN (7-18) mg/dL Creatinine (0.8-1.3) mg/dL Est Cr Clr Drug Dosing mL/min Estimated GFR (MDRD) (>60) Glucose (74-106) mg/dL Lactic Acid (0.4-2.0) mmol/L Calcium (8.5-10.1) mg/dL Ferritin (8-388) ng/ml Total Bilirubin (0.2-1.0) mg/dL Direct Bilirubin (0.0-0.2) mg/dL Indirect Bilirubin AST (15-37) U/L ALT (12-78) U/L Alkaline Phosphatase (46-116) U/L Lactate Dehydrogenase (85-227) U/L C-Reactive Protein (0.0-0.3) mg/dL Total Protein (6.4-8.2) g/dL Albumin (3.4-5.0) g/dL Globulin (2.3-3.5) g/dL Albumin/Globulin Ratio (1.2-2.2) Procalcitonin 0.06 ng/mL Meds: Medications Discontinued Medications Generic Name Dose Route Start Last Admin Trade Name Freq PRN Reason Stop Dose Admin Acetaminophen 650 mg 02/06/20 06:22 02/06/20 06:58 Tylenol PO 650 mg Q4H PRN Administration Fever Greater Than 101 Methylprednisolone Sodium Succinate 62.5 mg 02/06/20 07:50 02/06/20 08:04 Solu-Medrol IVPUSH 02/06/20 07:51 62.5 mg ONETIME ONE Administration Sodium Chloride 10 ml 02/06/20 06:22 02/06/20 06:57 Saline Flush FLUSH 10 ml ASDIRECTED PRN Administration Keep Vein Open - Re-Assessments/Exams Free Text/Narrative Re-Assessment/Exam: 02/06/20 07:51 Patient care accepted from Dr. Wallace pending x-ray and labs. Results are reassuring, patient is stable. Calcitonin and d-dimer are normal. Patient was given 62.5 mg of IV Solu-Medrol and will be placed on a tapering prednisone course starting at 40 mg daily and will finish his Zithromax. His COVID test is still pending, very possibly will be positive. He can return at any time if increased difficulty breathing or other concerns. No need for hospitalization at this time. Departure - Departure Time of Disposition: 08:17 Sepsis Event Note (ED) - Focused Exam Vital Signs: Vital Signs Temp Temp Pulse Resp BP Pulse Ox 02/06/20 06:58 100.1 F 02/06/20 06:40 100.1 F 110 H 14 119/66 92 L
[2020-02-06] MEDS ORDERED: methylPREDNISolone Sodium Succinate 125 MG/2 ML SDV IVPUSH ONE (07:50)
--- NOTE | 2020-02-06 10:01 | CR ---
CHEST: Portable 02/06/2020 at 7:28 AM CLINICAL HISTORY:Cough COMPARISON: 2016 FINDINGS: There is less than optimal inspiration in lordotic AP positioning. Heart size and pulmonary vascularity are normal. No infiltrate effusion or pneumothorax is seen. IMPRESSION: No acute cardiopulmonary process.
== END 2020-02-06 08:17 | disposition home or self-care (01) ==
LOC: JP.ED 06:14
DX: J40 Bronchitis, not specified as acute or chronic (principal); E78.00 Pure hypercholesterolemia, unspecified; I10 Essential (primary) hypertension; Z79.02 Long term (current) use of antithrombotics/antiplatelets; Z79.899 Other long term (current) drug therapy
CPT/HCPCS: 36415; 36600; 71045; 80048; 80076; 82728; 82803; 83605; 83615; 84145; 85025; 85379; 85610; 86140; 96374; 99285; A9270; J2930